=== PATIENT | female | born 1945 | race Caucasian/White ===

== ENCOUNTER → 2017-01-28 | Outpatient (CLI) | payer OTHER ==
[2017-01-28 13:46] LABS: BLOOD, URINE NEG (NEG); COMMENT (UR) CULT NOT INDICATED; CULTURE IF INDICATED CULT NOT INDICATED; GLUCOSE,URINE NEG (NEG); KETONE, URINE NEG (NEG); MUCUS URINE FEW /lpf (OCC); NITRITE,URINE NEG (NEG); PH, URINE 5.5 (5.0-8.5); SQUAMOUS EPITHELIAL CELL URINE 1 /hpf (0-5); URINE COLOR YELLOW (YELLW/STRAW)
[2017-01-28 13:48] LABS: HEMATOCRIT 45.2 % (35.0-46.0); MEAN CELL VOLUME 88.8 FL (80.0-100.0); MEAN CORPUSCULAR HEMOGLOBIN 30.2 PG (27.0-34.0); MEAN CORPUSCULAR HGB CONC 34.1 % (32.0-36.0); PLATELET COUNT 213 TH/MM3 (150-450); RED BLOOD COUNT 5.09 MIL/MM3 (4.00-5.30); RED CELL DISTRIBUTION WIDTH 13.7 % (11.6-17.2); REVIEW FLAG FINAL; WHITE BLOOD COUNT 6.4 TH/MM3 (4.0-11.0)
[2017-01-28 14:09] LABS: BICARBONATE 27.4 MEQ/L (21.0-32.0); POTASSIUM 4.2 MEQ/L (3.5-5.1)
--- NOTE | 2017-01-29 08:39 | EKG ---
Date Performed: 01/28/2017 Time Performed: 13:05:55 PTAGE: 71 years EKG: Sinus rhythm POSSIBLE LEFT ATRIAL ENLARGEMENT BORDERLINE ECG NO PREVIOUS TRACING DOCTOR: Triston Alegria Interpretating Date/Time 01/29/2017 08:37:39
== END ==
LOC: CPRE 12:37
PROVIDERS: ATTEND Obstetrics & Gynecology
DX: Z01.810 Encounter for preprocedural cardiovascular examination (principal); Z01.812 Encounter for preprocedural laboratory examination; N81.3 Complete uterovaginal prolapse; N81.10 Cystocele, unspecified; N81.6 Rectocele; N95.0 Postmenopausal bleeding; R94.31 Abnormal electrocardiogram [ECG] [EKG]
CPT/HCPCS: 36415; 80051; 81001; 85027; 86850; 86900; 86901; 93005

== ENCOUNTER 2017-01-30 05:23 | Observation (INO) | payer OTHER ==
--- NOTE | 2017-01-29 18:01 | MH ---
cc: ZIA DELAROSA DATE OF ADMISSION: 01/30/2017 ADMITTING DIAGNOSIS: 1. Uterine prolapse. 2. Cystocele. 3. Rectocele, third-degree. HISTORY OF PRESENT ILLNESS: The patient is a 71-year-old white female para 1-0-0-1 with a two month history of increasing prolapsed tissue per vagina. She was seen on 01/06/2017 with the prolapse. Her Pap smear was normal. Ultrasound showed a uterus that measured 5.4 cm. Endometrium normal. Right ovary not seen; left was normal. She is now admitted for surgical treatment. PAST MEDICAL HISTORY: Appendectomy age 14. MEDICATIONS: None. ALLERGIES: None. TRANSFUSIONS: None. OBSTETRICAL HISTORY: One vaginal delivery in 1970, 9 pound baby. SOCIAL HISTORY: She is a house ui designer. She is . Alcohol, tobacco and drugs: None. FAMILY HISTORY: Noncontributory. PHYSICAL EXAMINATION: GENERAL: A well-nourished well-developed white female. VITAL SIGNS: Stable. HEAD, EYES, EARS, NOSE, THROAT: Normal. CHEST: Clear. HEART: Regular rate. BREASTS: Symmetrical. ABDOMEN: Benign. PELVIC EXAM: The vagina shows a third degree prolapse with cervix coming through the introitus. Cystocele and rectocele. No masses. ASSESSMENT: As above. She is now admitted for a laparoscopy with planned laparoscopic-assisted vaginal hysterectomy, bilateral salpingo-oophorectomy, anterior/posterior repair, possible total abdominal hysterectomy if the laparoscopic approach is not feasible. While in the office, I explained the procedures, the risks, benefits, complications and the patient would like to proceed. Also discussed the possibility of recurrent prolapse and the need to avoid lifting type exercise. The patient understands and would like to proceed. MD DRU Vega/AURORA /5:38 PM /5:47 PM
[~2017-01-30] VITALS: Ht 160 cm; Wt 58.0 kg
[2017-01-30] MEDS ORDERED: LACTATED RINGER'S 1000 ML IV PRN (05:45)
[2017-01-30] MEDS ORDERED: SODIUM CHLORID 0.9% 500 ML IV PRN (05:45)
[2017-01-30] MEDS ORDERED: POVIDONE IODINE 5% (ANTISEPSIS KIT) 4 APPLICATIONS EACH NARE PRN (05:45)
[2017-01-30] MEDS ORDERED: CHLORHEXIDINE GLUCONATE 2 % 1 PACK (2 CLOTHS) TOPICAL PRN (05:45)
[2017-01-30] MEDS ORDERED: METOPROLOL TARTRATE 25 MG TAB PO PRN (05:45)
[2017-01-30] MEDS ORDERED: INSULIN HUMAN REGULAR 1,000 UNITS/10 ML VIAL SQ PRN (05:45)
[2017-01-30] MEDS ORDERED: ACETAMINOPHEN 1000 MG/100 ML VIAL IV SCH (05:45)
[2017-01-30] MEDS ORDERED: ceFAZolin 1,000 MG/NS 100 ML IV SCH ×2 (05:45)
[2017-01-30] MEDS ORDERED: ESTROGENS CONJUGATED VAG CREA 15 APPL/30 GM TUBE ONE (06:31)
[2017-01-30] MEDS ORDERED: BUPIVACAINE/EPINEPHRINE 0.25% 50 ML VIAL ONE (06:31)
[2017-01-30] MEDS ORDERED: FAMOTIDINE 20 MG/2 ML VIAL ONE (06:47)
[2017-01-30] MEDS ORDERED: MIDAZOLAM HCL 2 MG/2 ML VIAL ONE (06:47)
[2017-01-30] MEDS ORDERED: DEXAMETHASONE SOD PHOS 4 MG/ML VIAL ONE (06:47)
[2017-01-30] MEDS ORDERED: fentaNYL CITRATE 250 MCG/5 ML AMP ONE (06:47)
[2017-01-30] MEDS ORDERED: DICLOFENAC SODIUM 37.5 MG/ML VIAL IV PUSH ONE (06:47)
[2017-01-30] MEDS ORDERED: ONDANSETRON HCL 4 MG/2 ML VIAL IV PRN (09:30)
[2017-01-30] MEDS ORDERED: HYDROmorphone HCL PF 1 MG/ML VIAL IV PRN (09:30)
[2017-01-30] MEDS ORDERED: diphenhydrAMINE HCL 25 MG CAP PO PRN (09:30)
[2017-01-30] MEDS ORDERED: PROMETHAZINE INJ 25 MG/ML VIAL IM PRN (09:30)
[2017-01-30] MEDS ORDERED: SODIUM CHLORIDE 0.9% FLUSH 5 ML FLUSH FLUSH PRN (09:30)
[2017-01-30] MEDS ORDERED: ZOLPIDEM TARTRATE 5 MG TAB PO PRN (09:30)
[2017-01-30] MEDS ORDERED: ONDANSETRON ODT 4 MG TAB PO PRN (09:30)
[2017-01-30] MEDS: DOCUSATE SODIUM 100 MG CAP PO SCH ×2 (09:30→19:38)
[2017-01-30] MEDS ORDERED: ONDANSETRON INJ 8 MG in DEXTROSE 5% IN WATER INJ 50 ML IV PUSH PRN ×2 (10:00)
[2017-01-30] MEDS ORDERED: *morphine SULFATE 8 MG/ML PERIprocedure ONLY ONE (10:16)
[2017-01-30] MEDS: D5-1/2 NS + KCL 20 MEQ INJ 1,000 ML IV SCH ×2 (10:19→17:54)
[2017-01-30] MEDS ORDERED: PHENYLEPH/NS 1000 MCG/10 ML SYR IV ONE (13:00)
[2017-01-30] MEDS ORDERED: NEOSTIGMINE 3 MG/3 ML SYR IV ONE (13:00)
[2017-01-30] MEDS ORDERED: ePHEDrine/NS 25 MG/5 ML SYR IV ONE (13:00)
[2017-01-30] MEDS ORDERED: ONDANSETRON HCL 4 MG/2 ML VIAL IV PUSH ONE (13:00)
[2017-01-30] MEDS ORDERED: LACTATED RINGER'S 1000 ML INJ 1,000 ML IV ONE (13:00)
[2017-01-30] MEDS ORDERED: PROPOFOL 200 MG/20 ML AMP IV ONE (13:00)
[2017-01-30 13:23] LABS: HEMATOCRIT 41.9 % (35.0-46.0); REVIEW FLAG FINAL
[2017-01-30] MEDS: DICLOFENAC SODIUM 37.5 MG/ML VIAL IV PUSH SCH ×2 (13:25→18:59)
[2017-01-30] MEDS: ACETAMINOPHEN 1000 MG/100 ML VIAL IV SCH ×2 (13:26→21:51)
[2017-01-30 16:00] VITALS: BP 98/67; PULSE 70; RESP 18; TEMP 97.5; O2SAT 99
[2017-01-30] MEDS: SODIUM CHLORIDE 0.9% FLUSH 5 ML FLUSH FLUSH SCH (19:38)
[2017-01-30 20:00] VITALS: BP 127/61; PULSE 74; RESP 16; TEMP 98.5; O2SAT 96
[2017-01-30] MEDS ORDERED: KETOROLAC TROMETHAMINE 30 MG/ML (IVP) VIAL IV PUSH ONE (22:30)
[2017-01-31] VITALS: BP 123/61; PULSE 70; RESP 16; TEMP 96.8; O2SAT 98
[2017-01-31] MEDS ORDERED: KETOROLAC TROMETHAMINE 30 MG/ML (IVP) VIAL IV PUSH SCH (02:00)
[2017-01-31] MEDS: D5-1/2 NS + KCL 20 MEQ INJ 1,000 ML IV SCH ×2 (02:02→09:18)
[2017-01-31 03:53] VITALS: O2SAT 98
[2017-01-31 04:00] VITALS: BP 124/59; PULSE 71; RESP 18; TEMP 96.7; O2SAT 99
[2017-01-31] MEDS: KETOROLAC TROMETHAMINE 30 MG/ML (IVP) VIAL IV PUSH SCH ×2 (05:23→09:50)
[2017-01-31] MEDS: ACETAMINOPHEN 1000 MG/100 ML VIAL IV SCH (05:29)
[2017-01-31 08:00] VITALS: BP 131/70; PULSE 74; RESP 18; TEMP 97; O2SAT 98
[2017-01-31 08:05] LABS: AUTOMATED NEUTROPHIL # 10.9 TH/MM3 (1.8-7.7); BASOPHIL % 0.3 % (0.0-2.0); EOSINOPHIL % 0.2 % (0.0-4.0); HEMO FLAGS DIFF FINAL; LYMPH % 14.4 % (9.0-44.0); MEAN CELL VOLUME 89.6 FL (80.0-100.0); MEAN CORPUSCULAR HEMOGLOBIN 29.5 PG (27.0-34.0); MEAN CORPUSCULAR HGB CONC 32.9 % (32.0-36.0); MONO % 6.1 % (0.0-8.0); PLATELET COUNT 197 TH/MM3 (150-450); RED BLOOD COUNT 4.47 MIL/MM3 (4.00-5.30); RED CELL DISTRIBUTION WIDTH 13.8 % (11.6-17.2); WHITE BLOOD COUNT 13.8 TH/MM3 (4.0-11.0)
[2017-01-31 08:33] LABS: BICARBONATE 21.7 MEQ/L (21.0-32.0); POTASSIUM 4.2 MEQ/L (3.5-5.1)
[2017-01-31 08:56] LABS: CALCIUM-PROTEIN CORRECTED 7.8 MG/DL (8.5-10.1)
[2017-01-31] MEDS: SODIUM CHLORIDE 0.9% FLUSH 5 ML FLUSH FLUSH SCH (09:00)
[2017-01-31] MEDS: DOCUSATE SODIUM 100 MG CAP PO SCH (09:00)
--- NOTE | 2017-01-31 11:50 | HHI.DCPOC ---
Discharge Care Plan Report Symptoms to Your Doctor -Temperature above 100.5 degrees -Redness, of incision or excessive or foul smelling drainage -Unusual pain or calf pain -Increased vaginal bleeding -Painful or difficulty urinating -Feelings of extreme sadness or anxiety after 2 weeks Goals to Promote Your Health * To prevent worsening of your condition and complications * To maintain your health at the optimal level Directions to Meet Your Goals Take your medications as prescribed Follow your dietary instruction Follow activity as directed Ensure plenty of rest for recovery Drink fluids for hydration Keep your appointments as scheduled Take your immunizations and boosters as scheduled If your symptoms worsen call your PCP, if no PCP go to Urgent Care Center or Emergency Room Smoking is Dangerous to Your Health. Avoid second hand smoke Call the 24-hour crisis hotline for domestic abuse at Naveed Bae MD Jan 31, 2017 11:50
[2017-01-31 12:00] VITALS: BP 128/73; PULSE 70; RESP 18; TEMP 97.6; O2SAT 99
--- NOTE | 2017-02-01 21:41 | MP ---
cc: ZIA DELAROSA DATE OF SURGERY 01/30/2017 PREOPERATIVE DIAGNOSIS Uterine prolapse third-degree with cystocele and rectocele. POSTOPERATIVE DIAGNOSIS Uterine prolapse third-degree with cystocele and rectocele. PROCEDURE LAVH BSO, anterior-posterior repair. ANESTHESIA General ET. SURGEON Zia Delarosa MD TONG SETTER REMI Purcell ESTIMATED BLOOD LOSS 100 cc. FLUIDS One liter of Crystalloid. OBJECTIVE FINDINGS Following induction of adequate general endotracheal anesthesia, the patient was prepped and draped supine on the operating table dorsolithotomy position in sterile fashion with the bladder being drained by Khan catheterization. The abdomen was opened through 0.5 cm supraumbilical incision with a knife and a 5 port was placed. Laparoscope was inserted and a second 5 placed in the left lower quadrant and third in the right lower quadrant. Pelvic contents revealed a normal size, shape uterus, normal tubes, normal ovaries, normal cul-de-sacs, normal liver edge. Appendix is absent. Using a harmonic scalpel the left ovarian vessel was taken, left round ligament, left broad ligament, left-sided bladder flap and same on the right. The scope was now removed. Attention directed to the vagina. A heavy weighed speculum was placed in the posterior fornix of the vagina. The cervix was grasped with a Estelal clamp and cervix was scored circumferentially with the Bovie. The posterior cul-de-sac was entered sharply without incident. The bladder was gently pushed off of the anterior cervix and elevated with a thin retractor. Shireen clamp was used take the left uterosacral clamping, cutting, ligated 0-vicryl Shireen fashion. Then the uterosacral, right cardinal and left cardinal in the same fashion. Then the uterine artery pedicles were taken in the same fashion on each side. This allowed delivery of the cervix, uterus, tubes, ovaries through the vaginal vault for permanent study. The posterior vaginal cuff was then run to the posterior peritoneum with running locking stitch of 0 Vicryl. The pedicles reinforced for hemostasis and the peritoneum closed with pursestring suture of 0 Vicryl. The Allis clamps were then used to hold the anterior vaginal mucosa which was undermined over the cystocele and ureterocele and then the vaginal cuff was from the underlying perivesical and periurethral fascia. When well mobilized the perivesical fascia was plicated at the UV junction with 2-0 Vicryl Denice stitch. Additional sutures were placed to elevate ureterocele and cystocele and a second layer at the UV junction. Excess anterior vaginal cuff was trimmed and the anterior vaginal wall was closed with interrupted sutures of 2-0 Vicryl . In each corner of the cuff the cuff was supported with the uterosacral ligaments using 0 Vicryl pop off stitches. These were also used to close the anterior cuff front to back. Attention now directed to the posterior repair. A enrique wedge of scar tissue was removed from the perineum with a knife. Vaginal mucosa undermined over the rectocele and the vaginal cuff was from the underlying perirectal fascia. The perirectal fascia was then closed over the rectocele defect with a running stitch of 2-0 Vicryl. Excess posterior vaginal cuff was trimmed, posterior vaginal wall closed with running locking stitch of 2-0 Vicryl. The perineum was then reapproximated with interrupted sutures of 2-0 Vicryl and a running subcuticular 2-0 Vicryl. Inspection revealed good support. No bleeding. The vagina was packed with 2-inch gauze moistened with Premarin cream. Rectal exam was normal. Cat Breeder's gloves were changed. The laparoscope was now reinserted and inspected the operative sites. There was no bleeding. Ureters were inspected. Good peristalsis. There was no entrapment of tissue. The scope was now removed, gas allowed to escape and the wounds closed with 4-0 Monocryl subcuticular. Counts were correct. The patient taken down from [facility]. She was awakened and taken to the recovery room in good condition. MD DRU Vega/SAIMA /8:59 AM /9:21 PM SRIKANTH
== END 2017-01-31 13:01 | disposition home or self-care (01) ==
LOC: HSDC 05:23 → HSDI 09:22 → HOCA 14:49
PROVIDERS: ADMIT Obstetrics & Gynecology; ATTEND Obstetrics & Gynecology
DX: N81.3 Complete uterovaginal prolapse (principal); N81.10 Cystocele, unspecified; N81.6 Rectocele; N85.8 Other specified noninflammatory disorders of uterus; N72 Inflammatory disease of cervix uteri; N84.0 Polyp of corpus uteri; D27.0 Benign neoplasm of right ovary; N83.8 Other noninflammatory disorders of ovary, fallopian tube and broad ligament; N95.0 Postmenopausal bleeding
CPT/HCPCS: 00840; 57260; 58552; 80048; 84155; 85014; 85018; 85025; 88302; 88307; 94150; 96374; 96375; 96376; G0378; J0131; J0690; J1100; J1130; J1885; J2250; J2270; J2370; J2405; J2550; J2710; J3010; J3480; J7120